=== PATIENT | female | born 1945 | race Two or more races ===

== ENCOUNTER 2019-01-27 09:34 | Emergency (ER) | payer OTHER ==
[~2019-01-27] VITALS: Ht 149.9 cm; Wt 50.8 kg
[2019-01-27] MEDS ORDERED: DILTIAZEM ER240 M1 (10:11)
== END 2019-01-27 14:33 | disposition home or self-care (01) ==
LOC: ER 09:34
DX: M54.2 Cervicalgia (principal); K29.60 Other gastritis without bleeding

== ENCOUNTER 2019-05-01 10:17 | Outpatient (CLI) | payer OTHER ==
[~2019-05-01 10:17] MED LIST: DILTIAZEM ER240 M1
== END 2019-05-01 10:20 | disposition home or self-care (01) ==
LOC: MAMO-SONO 10:17
DX: Z12.31 Encounter for screening mammogram for malignant neoplasm of breast (principal); Z87.898 Personal history of other specified conditions; N63.10 Unspecified lump in the right breast, unspecified quadrant; N63.20 Unspecified lump in the left breast, unspecified quadrant

== ENCOUNTER 2019-05-06 11:28 | Outpatient (CLI) | payer OTHER | END 2019-05-06 11:33 | disposition home or self-care (01) | LOC: MAMO-SONO 11:28 | DX: Z12.31 Encounter for screening mammogram for malignant neoplasm of breast (principal); Z87.898 Personal history of other specified conditions; N63.10 Unspecified lump in the right breast, unspecified quadrant; N63.20 Unspecified lump in the left breast, unspecified quadrant ==

== ENCOUNTER → 2019-07-21 09:18 | Outpatient (CLI) | payer OTHER | END | disposition home or self-care (01) | LOC: LAB 09:18 | DX: K21.9 Gastro-esophageal reflux disease without esophagitis (principal) ==

== ENCOUNTER 2019-07-23 07:56 | Outpatient (CLI) | payer OTHER ==
[~2019-07-23] VITALS: Ht 162.6 cm; Wt 50.8 kg
== END 2019-07-23 08:20 | disposition home or self-care (01) ==
LOC: OFIC 805 07:56
DX: J31.0 Chronic rhinitis (principal); J37.0 Chronic laryngitis; K21.9 Gastro-esophageal reflux disease without esophagitis

== ENCOUNTER → 2019-08-06 | Outpatient (CLI) | payer OTHER | END | disposition home or self-care (01) | LOC: TOM 08:45 | DX: K30 Functional dyspepsia (principal); K57.30 Diverticulosis of large intestine without perforation or abscess without bleeding; R10.30 Lower abdominal pain, unspecified; Z86.010 Personal history of colon polyps; K21.9 Gastro-esophageal reflux disease without esophagitis | CPT/HCPCS: 74177; Q9965 ==

== ENCOUNTER 2019-09-19 07:49 | Outpatient (CLI) | payer OTHER | END 2019-09-19 07:55 | disposition home or self-care (01) | LOC: NUCLEAR 07:49 | DX: I11.9 Hypertensive heart disease without heart failure (principal); R07.89 Other chest pain | CPT/HCPCS: 78452; 93017; A9500; J0153 ==

== ENCOUNTER 2021-01-14 07:55 | Outpatient (CLI) | payer OTHER | END 2021-01-14 08:19 | disposition home or self-care (01) | LOC: MAMO-SONO 07:55 | PROVIDERS: ATTEND Obstetrics & Gynecology | DX: N63.20 Unspecified lump in the left breast, unspecified quadrant (principal); N64.59 Other signs and symptoms in breast; N63.10 Unspecified lump in the right breast, unspecified quadrant ==

== ENCOUNTER 2021-02-03 08:40 | Outpatient (CLI) | payer OTHER | END 2021-02-03 08:53 | disposition home or self-care (01) | LOC: SONOGRAMA 08:40 → MAMO-SONO 09:15 | PROVIDERS: ATTEND Internal Medicine | DX: K80.20 Calculus of gallbladder without cholecystitis without obstruction (principal) ==

== ENCOUNTER 2022-02-10 07:13 | Outpatient (CLI) | payer OTHER | END 2022-02-10 10:13 | disposition home or self-care (01) | LOC: NUCLEAR 07:13 | PROVIDERS: ATTEND Internal Medicine Cardiovascular Disease | DX: I25.9 Chronic ischemic heart disease, unspecified (principal) | CPT/HCPCS: 78452; 93017; A9500; J0153 ==

== ENCOUNTER 2023-01-24 06:27 | Day surgery (SDC) | payer OTHER ==
[~2023-01-24 06:27] MED LIST changes: +LIPITOR40 MG PO; +PLAVIX75 MG PO
[2023-01-24] MEDS ORDERED: PERCOCET 5-3251 EACH PO (10:47)
== END 2023-01-24 13:20 | disposition home or self-care (01) ==
LOC: CIR.AMB 06:27 → EDBD 10:45 → CIR.AMB 13:20
PROVIDERS: ATTEND Surgery
DX: D35.1 Benign neoplasm of parathyroid gland (principal); E21.0 Primary hyperparathyroidism; Z20.822 Contact with and (suspected) exposure to COVID-19